=== PATIENT | female | born 1950 | race Caucasian/White ===

== ENCOUNTER 2024-04-08 13:16 | Inpatient (IN) ==
[2024-04-08] MEDS ORDERED: Propofol 10 MG/ML 20 ML BTL ONE ×2 (13:40→17:51)
[2024-04-08] MEDS: Propofol 10 MG/ML 20 ML BTL IV PUSH ONE (13:48)
[2024-04-08] MEDS ORDERED: fentaNYL 100 mcg/2 ml 50 MCG/ML VIAL ONE ×2 (13:49→17:31)
[2024-04-08] MEDS: NS 0.9% 1000 ml BAG 1,000 ML IV ONE (13:50)
[2024-04-08] MEDS: fentaNYL 100 mcg/2 ml 50 MCG/ML VIAL IV SLOW PU ONE ×2 (13:50→18:16)
[2024-04-08 17:15] LABS: ABS Basophils 0.1 10^3/uL (0.0-0.1); ABS Eosinophils 0.1 10^3/uL (0.0-0.5); ABS Lymphocytes 0.9 10^3/uL (1.0-4.8); ABS Monocytes 0.6 10^3/uL (0.0-0.9); ABS Neutrophils 8.3 10^3/uL (1.5-7.6); Eosinophil % 0.8 %; Hematocrit 33.3 % (35-45); Hemoglobin 11.3 g/dL (11.5-14.3); Lymphocyte % 9.1 %; Mean Corpuscular Hemoglobin 30.1 pg (27-33); Mean Corpuscular Volume 88.7 fL (80-97); Mean Platelet Volume 8.5 fL (7.5-11.2); Platelet Count 191 10^3/uL (150-450); Red Blood Count 3.75 10^6/uL (3.63-4.92); Red Cell Distribution Width 14.8 % (12-17)
[2024-04-08] MEDS ORDERED: Midazolam 5 mg/5 ml VIAL 1 mg/ml 5 ml VIAL (5 mg) ONE (17:31)
[2024-04-08] MEDS ORDERED: Lidocaine 2% PF 5 ML VIAL ONE (17:51)
[2024-04-08] MEDS ORDERED: Succinylcholine 200 mg VIAL 20 mg/ml 10 ml VIAL (200 mg) ONE (17:51)
[2024-04-08 18:01] LABS: Calcium 8.7 mg/dL (8.6-10.3); Creatinine, Serum 0.84 mg/dL (0.51-0.95); eGFR CKD-EPI 72.4 (>60)
[2024-04-08] MEDS ORDERED: Dextrose 50% Syringe 50 ml 25 GM/50 ML SYRINGE IV PUSH PRN (20:13)
[2024-04-08] MEDS: oxyCODONE/Acetamin 5/325 mg TAB PO PRN (23:18)
[2024-04-08] MEDS: Lactated Ringers 1000 ml BAG 1,000 ML IV SCH (23:22)
[2024-04-09] MEDS: Acetaminophen IV 1 GM/100ML 1,000 MG/100 ML BAG IV PRN (02:07)
[2024-04-09] MEDS: D5LR 1000 ml BAG 1,000 ML IV SCH (09:40)
[2024-04-09] MEDS ORDERED: fentaNYL 100 mcg/2 ml 50 MCG/ML VIAL ONE (12:55)
[2024-04-09] MEDS ORDERED: Midazolam 2 mg/2 ml VIAL 1 mg/ml 2 ml VIAL (2 mg) ONE (12:55)
[2024-04-09] MEDS ORDERED: Phenylephrine IV 10 MG/ML 1 ml VIAL ONE (12:57)
[2024-04-09] MEDS ORDERED: Dexamethasone IV 4 MG/ML VIAL 1 ml VIAL ONE (12:57)
[2024-04-09] MEDS ORDERED: Propofol 10 MG/ML 20 ML BTL ONE (12:57)
[2024-04-09] MEDS ORDERED: Ondansetron 4 mg VIAL 2 MG/ML 2 ml VIAL ONE (12:57)
[2024-04-09] MEDS ORDERED: Lidocaine 2% PF 5 ML VIAL ONE (12:57)
[2024-04-09] MEDS ORDERED: ROPIVACAINE 5 MG/ML 30 ML BTL (0.5%) ONE (13:26)
[2024-04-09] MEDS ORDERED: Sodium Chloride 0.9% 10 ML ONE (13:27)
[2024-04-09] MEDS ORDERED: ceFAZolin VIAL VIAL ONE ×2 (15:21→17:19)
[2024-04-09] MEDS ORDERED: Naloxone 0.4 mg VIAL 0.4 mg/ml 1 ml VIAL IV PRN (15:42)
[2024-04-09] MEDS ORDERED: fentaNYL 100 mcg/2 ml 50 MCG/ML VIAL IV PRN (15:42)
[2024-04-09] MEDS ORDERED: Ondansetron 4 mg VIAL 2 MG/ML 2 ml VIAL IV PRN ×2 (15:42→18:21)
[2024-04-09] MEDS ORDERED: Metoclopramide 5 MG/ML VIAL (10 mg) IV PRN (15:42)
[2024-04-09] MEDS ORDERED: NS 0.45% 1000 ml BAG 1,000 ML IV SCH (16:00)
[2024-04-09] MEDS ORDERED: Remifentanil 2 MG VIAL ONE (16:40)
[2024-04-09] MEDS ORDERED: Lactulose 30 ml UDC PO PRN (18:21)
[2024-04-09] MEDS ORDERED: Magnesium Hydroxide LIQ 30 ML UDC PO PRN (18:21)
[2024-04-09] MEDS ORDERED: Ondansetron ODT 4 mg TAB 4 MG TAB PO PRN (18:21)
[2024-04-09] MEDS: Acetaminophen IV 1 GM/100ML 1,000 MG/100 ML BAG IV ONE (20:20)
[2024-04-09] MEDS: Lactated Ringers 1000 ml BAG 1,000 ML IV SCH (20:20)
[2024-04-09] MEDS: Magnesium Hydroxide LIQ 30 ML UDC PO SCH (20:30)
[2024-04-09] MEDS: Buffered Lidocaine 1% SYRIN 1 ml INTRADERM ONE (21:17)
[2024-04-09] MEDS: Scopolamine 1 mg/72hr PATCH TRANSDERM ONE (21:18)
[2024-04-09] MEDS: ceFAZolin 1 GM ADVAN 1 GM in NS 0.9% 50 ML 50 ML IVPB SCH (22:55)
[2024-04-10 06:06] LABS: ABS Lymphocytes 0.6 10^3/uL (1.0-4.8); ABS Monocytes 0.8 10^3/uL (0.0-0.9); ABS Neutrophils 8.1 10^3/uL (1.5-7.6); Hematocrit 35.9 % (35-45); Hemoglobin 11.9 g/dL (11.5-14.3); Lymphocyte % 6.5 %; Mean Corpuscular Hemoglobin 29.2 pg (27-33); Mean Corpuscular Volume 88.3 fL (80-97); Mean Platelet Volume 8.7 fL (7.5-11.2); Platelet Count 225 10^3/uL (150-450); Red Blood Count 4.07 10^6/uL (3.63-4.92); White Blood Count 9.6 10^3/uL (3.8-11.8)
[2024-04-10 06:25] LABS: Calcium 8.9 mg/dL (8.6-10.3); Creatinine, Serum 0.82 mg/dL (0.51-0.95); eGFR CKD-EPI 74.5 (>60)
[2024-04-10] MEDS: Vitamin THERAPEUTIC TAB PO SCH (09:13)
[2024-04-10 14:10] VITALS: BP 125/56
== END 2024-04-10 16:30 | disposition home or self-care (01) | DRG 494 ==
LOC: ED 13:16 → EDHOLD 17:19 → AA 18:38 → SSU 18:45
PROVIDERS: ADMIT Orthopaedic Surgery Hand Surgery; ATTEND Orthopaedic Surgery Hand Surgery